=== PATIENT | male | born 1975 | race Two or more races ===

== ENCOUNTER 2016-08-05 07:12 | Emergency (ER) | payer SELFPAY ==
[~2016-08-05] VITALS: Ht 167.6 cm; Wt 75.0 kg
[2016-08-05 07:15] VITALS: BP 170/107; PULSE 91; RESP 22; TEMP 98.1; O2SAT 95
[2016-08-05] MEDS ORDERED: TAMS5CAP PO ×2 (08:01→11:28)
[2016-08-05] MEDS ORDERED: HYDR-3516 PO (08:01)
[2016-08-05] MEDS ORDERED: SODIUM CHLORIDE 0.9% FLUSH 10 ML FLUSH IV FLUSH PRN (08:15)
[2016-08-05] MEDS ORDERED: KETOROLAC TROMETHAMINE 30 MG/ML (IVP) VIAL IV PUSH ONE (08:15)
[2016-08-05] MEDS ORDERED: ONDANSETRON HCL 4 MG/2 ML VIAL IV PUSH ONE (08:15)
[2016-08-05] MEDS ORDERED: SODIUM CHLOR 0.9% 1000 ML INJ 1,000 ML IV ONE (08:15)
--- NOTE | 2016-08-05 08:16 | PD ---
HPI Chief Complaint: Flank/Kidney Pain Time Seen by Provider: 08:12 Travel History International Travel<30 days: No Contact w/Intl Traveler<30days: No Traveled to known affect area: No History of Present Illness HPI 41-year-old male with history of no significant past medical issues, presents to the ER today with left upper quadrant and left 10 out of 10 flank pain with nausea and vomiting. He states he is only able to make a small amount urine since 4 AM with the pain started. He denies any fevers or any other issues. He does not know any exacerbating or alleviating factors. Modifying Factors: None Associated Signs & Symptoms: Left upper quadrant and left flank pain, nausea and vomiting Risk Factors: None PFSH Past Medical History Diminished Hearing: No Kidney Stones: Yes Tetanus Vaccination: > 5 Years Influenza Vaccination: No Past Surgical History Surgical History: No Previous Surgery Social History Alcohol Use: No Tobacco Use: No Substance Use: No Allergies-Medications (Allergen,Severity, Reaction): Coded Allergies: No Known Allergies (Unverified , 08/05/16) Reported Meds & Prescriptions Reported Meds & Active Scripts Active Reported Flomax (Tamsulosin HCl) 0.4 Mg Cap 0.4 Mg PO DAILY Hydrocodone-Acetaminophen 5-325 mg Tab 1 Tab PO Q4H PRN Review of Systems Except as stated in HPI: all other systems reviewed are Neg Physical Exam Narrative GENERAL: Middle age male patient currently awake, alert, and oriented. Not in acute distress. SKIN: Focused skin assessment warm/dry. HEAD: Atraumatic. Normocephalic. EYES: Pupils equal and round. No scleral icterus. No injection or drainage. ENT: No nasal bleeding or discharge. Mucous membranes pink and moist. NECK: Trachea midline. No JVD. CARDIOVASCULAR: Regular rate and rhythm. No murmur appreciated. RESPIRATORY: No accessory muscle use. Clear to auscultation. Breath sounds equal bilaterally. GASTROINTESTINAL: Abdomen soft, left upper quadrant tenderness without guarding or rebound, nondistended. Hepatic and splenic margins not palpable. Left CVA tenderness. MUSCULOSKELETAL: No obvious deformities. No clubbing. No cyanosis. No edema. NEUROLOGICAL: Awake and alert. No obvious cranial nerve deficits. Motor grossly within normal limits. Normal speech. PSYCHIATRIC: Appropriate mood and affect; insight and judgment normal. Data Data Last Documented VS Vital Signs Date Time Temp Pulse Resp B/P Pulse Ox O2 Delivery O2 Flow Rate FiO2 08/05/16 07:15 98.1 91 22 170/107 95 Orders Complete Blood Count With Diff (08/05/16 08:01) Comprehensive Metabolic Panel (08/05/16 08:01) Lipase (08/05/16 08:01) Urinalysis - C+S If Indicated (08/05/16 08:01) Ct Abd/Pel W/O Iv Contrast (08/05/16 08:01) Iv Access Insert/Monitor (08/05/16 08:01) Ecg Monitoring (08/05/16 08:) Oximetry (08/05/16 08:01) Sodium Chloride 0.9% Flush (Ns Flush) (08/05/16 08:15) Ketorolac Inj (Toradol Inj) (08/05/16 08:15) Sodium Chlor 0.9% 1000 Ml Inj (Ns 1000 M (08/05/16 08:15) Ondansetron Inj (Zofran Inj) (08/05/16 08:15) Labs Laboratory Tests Test 08/05/16 08:00 White Blood Count 13.1 TH/MM3 Red Blood Count 4.99 MIL/MM3 Hemoglobin 14.4 GM/DL Hematocrit 40.9 % Mean Corpuscular Volume 81.9 FL Mean Corpuscular Hemoglobin 28.9 PG Mean Corpuscular Hemoglobin 35.3 % Concent Red Cell Distribution Width 13.3 % Platelet Count 187 TH/MM3 Mean Platelet Volume 8.3 FL Neutrophils (%) (Auto) 85.8 % Lymphocytes (%) (Auto) 7.7 % Monocytes (%) (Auto) 6.1 % Eosinophils (%) (Auto) 0.1 % Basophils (%) (Auto) 0.3 % Neutrophils # (Auto) 11.2 TH/MM3 Lymphocytes # (Auto) 1.0 TH/MM3 Monocytes # (Auto) 0.8 TH/MM3 Eosinophils # (Auto) 0.0 TH/MM3 Basophils # (Auto) 0.0 TH/MM3 CBC Comment DIFF FINAL Differential Comment Urine Color YELLOW Urine Turbidity CLEAR Urine pH 5.5 Urine Specific [place] 1.024 Urine Protein TRACE mg/dL Urine Glucose (UA) NEG mg/dL Urine Ketones NEG mg/dL Urine Occult Blood MOD Urine Nitrite NEG Urine Bilirubin NEG Urine Urobilinogen LESS THAN 2.0 MG/DL Urine Leukocyte Esterase NEG Urine RBC 165 /hpf Urine WBC LESS THAN 1 /hpf Urine Bacteria OCC /hpf Urine Mucus FEW /lpf Urine Yeast (Budding) OCC Microscopic Urinalysis Comment CULT NOT INDICATED Sodium Level 140 MEQ/L Potassium Level 4.4 MEQ/L Chloride Level 107 MEQ/L Carbon Dioxide Level 24.2 MEQ/L Anion Gap 9 MEQ/L Blood Urea Nitrogen 18 MG/DL Creatinine 1.17 MG/DL Estimat Glomerular Filtration 68 ML/MIN Rate Random Glucose 122 MG/DL Calcium Level 8.6 MG/DL Total Bilirubin 1.1 MG/DL Aspartate Amino Transf 30 U/L (AST/SGOT) Alanine Aminotransferase 56 U/L (ALT/SGPT) Alkaline Phosphatase 110 U/L Total Protein 6.8 GM/DL Albumin 4.0 GM/DL Lipase 314 U/L [facility] Medical Decision Making Medical Screen Exam Complete: Yes Emergency Medical Condition: Yes Medical Record Reviewed: Yes Interpretation(s) Laboratory Tests Test 08/05/16 08:00 White Blood Count 13.1 TH/MM3 (4.0-11.0) Neutrophils (%) (Auto) 85.8 % (16.0-70.0) Lymphocytes (%) (Auto) 7.7 % (9.0-44.0) Neutrophils # (Auto) 11.2 TH/MM3 (1.8-7.7) Urine Occult Blood MOD (NEG) Urine RBC 165 /hpf (0-3) Urine Bacteria OCC /hpf (NONE) Urine Mucus FEW /lpf (OCC) Urine Yeast (Budding) OCC (NONE) Estimat Glomerular Filtration 68 ML/MIN (>89) Rate Random Glucose 122 MG/DL (74-106) Total Bilirubin 1.1 MG/DL (0.2-1.0) Last 24 hours Impressions Abdomen/Pelvis CT 08/05/16 0801 Signed Impressions: Service Date/Time: Friday, August 05, 2016 09:26 - CONCLUSION: 1. Obstructing stone on the left measuring 8 mm x 2 mm. This is at the ureterovesical junction. A second stone remains in the left kidney. 2. There are no calcifications on the right. Giorgio Coughlin MD FACR Differential Diagnosis Left upper quadrant and left CVA tenderness, nausea and vomitingrenal colic versus pancreatitis versus gastritis versus musculoskeletal Narrative Course CAT scan reveals a 8 mm obstructing stone. Case was discussed with Dr. Frost who states that patient may need stenting. He noted that as long as the patient 's pain is controlled, patient can be released with follow-up to the clinic for further treatment of kidney stone. On the other hand, patient can also be admitted to the hospital for pain control. I have talked to the patient regarding the findings and he states his pain is now down to a 4 out of 10 and is fairly controlled. At this point, my plan would be to release the patient with follow-up to urology and with further pain control medications. I have reiterated several times the importance of following up with urology since his kidney stone may not pass. He will have to strain his urine. Patient states that he has had a previous history of kidney stones and has had experience was straining his urine and has a urologist in [place] that he has followed up with the past. At this point, patient states understanding. Return for any worsening in pain or new symptoms as needed. Diagnosis Primary Impression: UNSPECIFIED RENAL COLIC Med/Other Pt SpecificInfo: Prescription(s) given Scripts Tamsulosin (Flomax)0.4 Mg Cap0.4 Mg PO HS #7 CAP Ref 0 Prov:Lennox Andersen MD 08/05/16 Hydrocodone-Acetaminophen (Lortab)5-325 Mg Tab1-2 Tab PO Q6H PRN (PAIN) #20 TAB Ref 0 Prov:Lennox Andersen MD 08/05/16 Disposition: 01 DISCHARGE HOME Condition: Stable Lennox Andersen MD Aug 05, 2016 08:16
[2016-08-05 08:21] LABS: AUTOMATED NEUTROPHIL # 11.2 TH/MM3 (1.8-7.7); BASOPHIL % 0.3 % (0.0-2.0); EOSINOPHIL % 0.1 % (0.0-4.0); HEMATOCRIT 40.9 % (39.0-51.0); HEMO FLAGS DIFF FINAL; LYMPH % 7.7 % (9.0-44.0); MEAN CELL VOLUME 81.9 FL (80.0-100.0); MEAN CORPUSCULAR HEMOGLOBIN 28.9 PG (27.0-34.0); MEAN CORPUSCULAR HGB CONC 35.3 % (32.0-36.0); MONO % 6.1 % (0.0-8.0); NEUT % 85.8 % (16.0-70.0); PLATELET COUNT 187 TH/MM3 (150-450); RED BLOOD COUNT 4.99 MIL/MM3 (4.50-5.90); RED CELL DISTRIBUTION WIDTH 13.3 % (11.6-17.2); WHITE BLOOD COUNT 13.1 TH/MM3 (4.0-11.0)
[2016-08-05 08:39] LABS: ANION GAP 9 MEQ/L (5-15); AST (GOT) 30 U/L (15-37); BICARBONATE 24.2 MEQ/L (21.0-32.0); BLOOD UREA NITROGEN 18 MG/DL (7-18); CHLORIDE 107 MEQ/L (98-107); GLOMERULAR FILTRATION RATE 68 ML/MIN (>89); POTASSIUM 4.4 MEQ/L (3.5-5.1); SODIUM (NA) 140 MEQ/L (136-145)
[2016-08-05 08:43] LABS: ALKALINE PHOSPHATASE 110 U/L (45-117); ALT (GPT) 56 U/L (12-78); TOTAL BILIRUBIN ADULT 1.1 MG/DL (0.2-1.0)
[2016-08-05 08:55] LABS: BLOOD, URINE MOD (NEG); GLUCOSE,URINE NEG (NEG); KETONE, URINE NEG (NEG); MUCUS URINE FEW /lpf (OCC); NITRITE,URINE NEG (NEG); PH, URINE 5.5 (5.0-8.5); URINE COLOR YELLOW (YELLW/STRAW)
[2016-08-05 09:02] LABS: BACTERIA, URINE OCC /hpf; COMMENT (UR) CULT NOT INDICATED; CULTURE IF INDICATED CULT NOT INDICATED
[2016-08-05 09:19] VITALS: RESP 20
--- NOTE | 2016-08-05 10:08 | RADRPT ---
EXAM DATE/TIME: 08/05/2016 09:26 [facility] COMPARISON: No previous studies available for comparison. INDICATIONS : Left lower quadrant pain, difficulty urinating. ORAL CONTRAST: No oral contrast ingested. RADIATION DOSE: 13.75 CTDIvol (mGy) MEDICAL HISTORY : Renal calculi. SURGICAL HISTORY : None. ENCOUNTER: Initial ACUITY: 1 day PAIN SCALE: 6/10 LOCATION: Left lower quadrant TECHNIQUE: Volumetric scanning of the abdomen and pelvis was performed. Using automated exposure control and ad justment of the mA and/or kV according to patient size, radiation dose was kept as low as reasonably achievable to obtain optimal diagnostic quality images. FINDINGS: The lung bases are clear. Calcification is seen in the dome of the liver. Spleen is unremarkable. Pancreas and adrenal glands appear normal. The right kidney is unremarkable. There is a 7 mm calculus in the mid portion of the right kidney with moderate perinephric stranding. There is dilatation of the left ureter down to the left ureterovesical junction where there is an el ongated 8 mm x 2 mm stone evident. This is causing moderate obstruction. Pelvic contents are otherwise unremarkable. CONCLUSION: 1. Obstructing stone on the left measuring 8 mm x 2 mm. This is at the ureterovesical junction. A second stone remains in the left kidney. 2. There are no calcifications on the right. Giorgio Coughlin MD FACR on August 05, 2016 at 10:01 Board Certified Radiologist. This report was verified electronically.
[2016-08-05] MEDS ORDERED: HYDR-3533 PO (11:28)
[2016-08-05] MEDS ORDERED: ZOFR4TAB3 SL (11:38)
[2016-08-05 12:08] VITALS: BP 124/85
== END 2016-08-05 12:09 | disposition home or self-care (01) ==
LOC: NEPE 07:12
DX: N23 Unspecified renal colic (principal); N20.1 Calculus of ureter; N20.0 Calculus of kidney; Z87.442 Personal history of urinary calculi
CPT/HCPCS: 74176; 80053; 81001; 83690; 85025; 96361; 96374; 96375; 99284; J1885; J2405; J7030